=== PATIENT | female | born 1995 | race Caucasian/White ===

== ENCOUNTER 2016-06-05 14:53 | Emergency (ER) | payer OTHER ==
[~2016-06-05] VITALS: Ht 165.1 cm; Wt 99.8 kg
[~2016-06-05 14:53] MED LIST: PROAIR HFA0.09 MG/Ac IH
--- NOTE | 2016-06-05 15:00 | NUR ---
Patient to bed 02.
[2016-06-05 15:06] VITALS: BP 141/73
[2016-06-05] MEDS ORDERED: ALBUTEROL SULFATE/IPRATROPIU 3 ML SOL IH ONE ×3 (15:10→17:15)
[2016-06-05] MEDS ORDERED: NACL 0.9% 1,000 ML IV ONE (15:10)
--- NOTE | 2016-06-05 15:15 | NUR ---
RT at bedside.
--- NOTE | 2016-06-05 15:27 | NUR ---
PATIENT PRESENTS TO ED WITH URGENT CARE LAST SAT.WITH PRESCRIPTION OF AZITHROMYSIN,COUGH SYRUP AND MOTRIN.WHEEZ LT. LOWER POSTERIOR/DIMINISHED . ERMD MADE AWARE, DENIES N/V/D; SKIN IS PINK/WARM/DRY; AAOX4 WITH EVEN AND STEADY GAIT; LUNGS CLEAR BL; HR EVEN AND REGULAR; PT DENIES ANY FEVER, CP, AT THIS TIME; PATIENT STATES PAIN OF 0/10 AT THIS TIME; VSS; PATIENT POSITIONED FOR COMFORT; HOB ELEVATED; BEDRAILS UP X2; BED DOWN. ER MD MADE AWARE OF PT STATUS.
--- NOTE | 2016-06-05 15:44 | NUR ---
XRAY AT BEDSIDE.
[2016-06-05] MEDS ORDERED: methylPREDNISolone SS 125 MG/2 ML VIAL ONE (16:12)
--- NOTE | 2016-06-05 17:16 | NUR ---
RT at bedside
[2016-06-05 17:49] VITALS: BP 108/76
--- NOTE | 2016-06-05 17:49 | NUR ---
Patient discharged with v/s stable. Written and verbal after care instructions given and explained. Patient alert, oriented and verbalized understanding of instructions. Ambulatory with steady gait. All questions addressed prior to discharge. ID band removed. Patient advised to follow up with PMD. Rx of MEDROL DOSE PACK given. Patient educated on indication of medication including possible reaction and side effects. Opportunity to ask questions provided and answered.
[2016-06-05] MEDS ORDERED: methylPREDNISolone SS 125 MG/2 ML VIAL IVP SCH (21:00)
== END 2016-06-05 17:49 | disposition home or self-care (01) ==
LOC: MED 14:56
DX: J45.901 Unspecified asthma with (acute) exacerbation (principal)
CPT/HCPCS: 71010; 94640; 96361; 96374; 99284; J2930; J7620; Q0092

== ENCOUNTER 2017-02-03 20:44 | Emergency (ER) | payer OTHER ==
[~2017-02-03] VITALS: Ht 162.6 cm; Wt 97.5 kg
[~2017-02-03 20:44] MED LIST changes: +ALBU-136 IH; -PROAIR HFA0.09 MG/Ac IH
[2017-02-03 20:51] VITALS: BP 139/85
[2017-02-03 21:21] LABS: APPEARANCE,URINE HAZY (CLEAR); BILIRUBIN,URINE 1+ (NEGATIVE); BLOOD, URINE 1+ (NEGATIVE); COLOR,URINE YELLOW (YELLOW); LEUKOCYTE ESTERASE ,URINE NEGATIVE (NEGATIVE); NITRITE, URINE NEGATIVE (NEGATIVE); UGLUCOSE NEGATIVE (NEGATIVE)
[2017-02-03 21:22] LABS: RBC,URINE 3-10 (FEW) /HPF (0-5)
--- NOTE | 2017-02-03 21:42 | NUR ---
AMBULATED TO ER BED 6
[2017-02-03 21:45] VITALS: BP 139/85
--- NOTE | 2017-02-03 22:09 | NUR ---
PATIENT PRESENTS TO ED WITH C/O LEFT FLANK PAIN AND PAINFUL URINATION . PT DENIES N/V/D; SKIN IS PINK/WARM/DRY; AAOX4 WITH EVEN AND STEADY GAIT; LUNGS CLEAR BL; HR EVEN AND REGULAR; PT DENIES ANY FEVER, CP, SOB, OR COUGH AT THIS TIME; PATIENT STATES PAIN OF 9/10 AT THIS TIME; VSS; PATIENT POSITIONED FOR COMFORT; HOB ELEVATED; BEDRAILS UP X2; BED DOWN. ER MD MADE AWARE OF PT STATUS.
--- NOTE | 2017-02-03 22:44 | NUR ---
Patient discharged with v/s stable. Written and verbal after care instructions given and explained. Patient alert, oriented and verbalized understanding of instructions. Ambulatory with steady gait. All questions addressed prior to discharge. ID band removed. Patient advised to follow up with PMD. Rx of norco and motrin given. Patient educated on indication of medication including possible reaction and side effects. Opportunity to ask questions provided and answered.
== END 2017-02-03 22:44 | disposition home or self-care (01) ==
LOC: MED 20:44
DX: N20.0 Calculus of kidney (principal); J45.909 Unspecified asthma, uncomplicated; Z79.51 Long term (current) use of inhaled steroids
CPT/HCPCS: 81001; 81025; 87086; 99284

== ENCOUNTER 2018-07-25 21:39 | Emergency (ER) | payer OTHER ==
[~2018-07-25] VITALS: Ht 162.6 cm; Wt 102.1 kg
[2018-07-25 21:46] VITALS: BP 135/77
--- NOTE | 2018-07-25 22:15 | NUR ---
CALLED FOR PT IN ER LOBBY AND OUTSIDE OF ER, NO ANSWER. PT LWBS AT [phone]
--- NOTE | 2018-07-25 22:19 | NUR ---
CALLED FOR PT IN ER LOBBY AND OUTSIDE OF ER, NO ANSWER. PT LWBS AT [id number]
--- NOTE | 2018-07-25 22:21 | NUR ---
CALLED FOR PT IN ER LOBBY AND OUTSIDE OF ER, NO ANSWER. PT LWBS AT [phone]
[2018-07-25 22:53] LABS: APPEARANCE,URINE CLEAR (CLEAR); BILIRUBIN,URINE NEGATIVE (NEGATIVE); BLOOD, URINE NEGATIVE (NEGATIVE); COLOR,URINE YELLOW (YELLOW); LEUKOCYTE ESTERASE ,URINE NEGATIVE (NEGATIVE); NITRITE, URINE NEGATIVE (NEGATIVE); UGLUCOSE NEGATIVE (NEGATIVE)
== END 2018-07-25 22:15 | disposition left against medical advice (07) ==
LOC: MED 21:39
DX: R10.13 Epigastric pain (principal); J45.909 Unspecified asthma, uncomplicated; Z53.21 Procedure and treatment not carried out due to patient leaving prior to being seen by health care provider; Z98.890 Other specified postprocedural states
CPT/HCPCS: 81003; 81025; 99281

== ENCOUNTER 2018-10-03 17:50 | Emergency (ER) | payer OTHER ==
[~2018-10-03] VITALS: Ht 162.6 cm; Wt 99.8 kg
[2018-10-03 17:52] VITALS: BP 135/53
--- NOTE | 2018-10-03 18:05 | NUR ---
PT AMBULATED TO ER BED 1 Addendum: 10/03/18 at 1807 by [email or web address] AMBULATED TO ER BED 5
--- NOTE | 2018-10-03 18:06 | NUR ---
pt ambulated to bed 5
--- NOTE | 2018-10-03 18:22 | NUR ---
PATIENT PRESENTS TO ED WITH C/O INTERMITTENT CLEAR MUCOUS IN BOWEL MOVEMENT X 1 WEEK. DENIES N/V/D OR FEVER. DENIES ABDOMINAL PAIN. LAST BOWEL MOVEMENT 10/03/18. PATIENT STATES PAIN OF 0/10 AT THIS TIME; VSS; PATIENT POSITIONED FOR COMFORT; PENDING ER MD EVALUATION.
[2018-10-03] MEDS ORDERED: LACTULOSE 20 GM/30 ML UDC PO ONE (20:35)
[2018-10-03 20:52] VITALS: BP 107/70
== END 2018-10-03 20:50 | disposition home or self-care (01) ==
LOC: MED 17:50
DX: K59.00 Constipation, unspecified (principal); J45.909 Unspecified asthma, uncomplicated; Z79.899 Other long term (current) drug therapy
CPT/HCPCS: 74018; 81025; 99283; Q0092